=== PATIENT | male | born 1970 | race Caucasian/White ===

== ENCOUNTER → 2019-12-10 16:02 | Outpatient (BNVA) | payer MEDICAID, SELFPAY | PROVIDERS: PCP Family Medicine; Visit Provider Urology | DX: R39.89 Other symptoms and signs involving the genitourinary system (principal) | CPT/HCPCS: 51798; 81003; 99214 ==

== ENCOUNTER → 2020-01-21 14:59 | Outpatient (BNVA) | payer MEDICAID, SELFPAY | PROVIDERS: PCP Family Medicine; Referring Provider Family Medicine; Visit Provider Urology | DX: R39.12 Poor urinary stream (principal) | CPT/HCPCS: 52000; 81002; 99212 ==

== ENCOUNTER 2020-03-20 17:31 | Outpatient (REF) | payer MEDICAID, SELFPAY | END 2020-03-20 17:32 | disposition home or self-care (01) | LOC: HO.LAB 17:31 | PROVIDERS: Visit Provider Internal Medicine | DX: Z20.822 Contact with and (suspected) exposure to COVID-19 (principal) | CPT/HCPCS: 36415; C9803; U0003 ==

== ENCOUNTER 2020-08-23 16:52 | Outpatient (REF) | payer MEDICAID, SELFPAY ==
--- NOTE | ~2020-08-23 | XR_ITS ---
EXAMINATION: CHEST AND BILATERAL RIB X-RAY CLINICAL INFORMATION: Intercostal pain COMPARISON: Previous chest x-ray most recent 08/23/2020 TECHNIQUE: PA view of the chest and 6 views of the bilateral ribs FINDINGS: The cardiac and mediastinal contours are normal. The lungs are clear. There is no pleural effusion or pneumothorax. No rib fracture or bone lesion is seen. Degenerative changes of the thoracic spine. There is a small sclerotic lesion in left proximal humeral shaft. This is unchanged from 2016 chest x-ray and may represent a benign bone island. XR/XR ribs BI 3V IMPRESSION: No rib fracture or bone lesion is seen.
--- NOTE | ~2020-08-23 | XR_ITS ---
EXAMINATION: CHEST AND BILATERAL RIB X-RAY CLINICAL INFORMATION: Intercostal pain COMPARISON: Previous chest x-ray most recent 08/23/2020 TECHNIQUE: PA view of the chest and 6 views of the bilateral ribs FINDINGS: The cardiac and mediastinal contours are normal. The lungs are clear. There is no pleural effusion or pneumothorax. No rib fracture or bone lesion is seen. Degenerative changes of the thoracic spine. There is a small sclerotic lesion in left proximal humeral shaft. This is unchanged from 2016 chest x-ray and may represent a benign bone island. XR/XR chest 2V IMPRESSION: No rib fracture or bone lesion is seen.
== END 2020-08-23 16:53 | disposition home or self-care (01) ==
LOC: HO.XRAY 16:52
PROVIDERS: PCP Internal Medicine; Referring Provider Internal Medicine; Visit Provider Emergency Medicine
DX: R07.82 Intercostal pain (principal)
CPT/HCPCS: 71046; 71110

== ENCOUNTER 2021-01-11 13:06 | Outpatient (REF) | payer MEDICAID, SELFPAY ==
--- NOTE | ~2021-01-11 | MM_ITS ---
EXAMINATION: MM DIAGNOSTIC DIGITAL BREAST TOMOSYNTHESIS, BILATERAL US DIAGNOSTIC ULTRASOUND BREAST, RIGHT CLINICAL INFORMATION: Intermittent tenderness and palpable fullness right periareolar region, 4-5 months. Male age 50. No prior breast imaging. COMPARISON: None. TECHNIQUE: Digital breast tomosynthesis is performed in both the craniocaudal and mediolateral oblique views along with computer-aided detection (CAD). Synthesized 2D images are generated from the tomosynthesis. Additional spot right MLO view is obtained. Ultrasound right breast is targeted to the area of clinical concern subareolar and periareolar region. Grayscale imaging and color Doppler are performed without and with harmonics. FINDINGS: There are scattered areas of fibroglandular density (ACR BI-RADS breast composition Category b). There is mild gynecomastia parenchymal pattern subareolar right breast with trace involvement on left. There is no mass or architectural abnormality. No abnormal calcifications. The axilla and skin contours are unremarkable. There is no skin thickening or coarsening of the stromal markings. Ultrasound demonstrates no cystic or solid mass or focal architectural abnormality. No focal duct ectasia. No skin thickening or edema tracking in soft tissue planes. Results are discussed with the patient at time of visit. MM/MM tomosynthesis diagnostic BI IMPRESSION: Mild gynecomastia, greater on right. ASSESSMENT: BI-RADS 2: Benign RECOMMENDATION: Patient should be managed based on the clinical impression as needed. If clinically indicated, further evaluation may be considered with surgical consult. Decision to proceed with biopsy should be based on clinical grounds and degree of clinical concern.
== END 2021-01-11 13:07 | disposition home or self-care (01) ==
LOC: HO.MAMMO 13:06
PROVIDERS: Visit Provider Nurse Practitioner Family
DX: N62 Hypertrophy of breast (principal)
CPT/HCPCS: 76642; 77062; 77066

== ENCOUNTER 2021-11-07 16:50 | Outpatient (REF) | payer MEDICAID, SELFPAY ==
--- NOTE | ~2021-11-07 | XR_ITS ---
EXAMINATION: XR KNEE, BILATERAL CLINICAL INFORMATION: Pain. COMPARISON: None TECHNIQUE: 4 views of each knee. FINDINGS: RIGHT KNEE: There is no evidence of acute fracture or dislocation of the right knee. There is mild medial joint space compartment narrowing with minor marginal spurring. There is a small right knee effusion. No significant degenerative change of the patellofemoral joint is seen. There is a large patellar spur site of insertion of the quadriceps tendon. Vascular calcifications present. LEFT KNEE: There is no evidence of acute fracture or dislocation of the left knee. There is narrowing of the medial joint space compartment. No significant effusion is appreciated. No significant patellofemoral joint degenerative changes seen. There is a spur site of insertion of the quadriceps tendon on the patella. XR/XR knee RT 4V IMPRESSION: Right knee effusion. Bilateral mild medial joint space compartment narrowing.
--- NOTE | ~2021-11-07 | XR_ITS ---
EXAMINATION: XR SHOULDER, LEFT CLINICAL INFORMATION: Pain COMPARISON: 08/20/2017 TECHNIQUE: AP external rotation, Grashey, scapular Y, and axillary views of the left shoulder. FINDINGS: There is no evidence of acute fracture or dislocation of the left shoulder. There is mild spurring of the glenohumeral joint without joint space narrowing. No calcific tendinitis. There is degenerative spurring about the left acromioclavicular joint. There is no widening of the coracoclavicular space. Benign-appearing sclerotic lesion is seen within the proximal humeral shaft which may represent an ossifying fibroma. I do not see a central low density area to suggest nidus of an osteoid osteoma. XR/XR shoulder LT min 2V IMPRESSION: Degenerative change of the acromioclavicular joint with no significant shoulder abnormality. 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
--- NOTE | ~2021-11-07 | XR_ITS ---
EXAMINATION: XR KNEE, BILATERAL CLINICAL INFORMATION: Pain. COMPARISON: None TECHNIQUE: 4 views of each knee. FINDINGS: RIGHT KNEE: There is no evidence of acute fracture or dislocation of the right knee. There is mild medial joint space compartment narrowing with minor marginal spurring. There is a small right knee effusion. No significant degenerative change of the patellofemoral joint is seen. There is a large patellar spur site of insertion of the quadriceps tendon. Vascular calcifications present. LEFT KNEE: There is no evidence of acute fracture or dislocation of the left knee. There is narrowing of the medial joint space compartment. No significant effusion is appreciated. No significant patellofemoral joint degenerative changes seen. There is a spur site of insertion of the quadriceps tendon on the patella. XR/XR knee LT 4V IMPRESSION: Right knee effusion. Bilateral mild medial joint space compartment narrowing.
[2021-11-07 17:18] LABS: MANUAL DIFF FLAG NO
[2021-11-07 17:49] LABS: Basophils Absolute Auto 0.1 X10*3/uL (0.0-0.2); Basophils Percent Auto 1.4 % (0-2); Eosinophils Absolute Auto 0.4 X10*3/uL (0.0-0.4); Eosinophils Percent Auto 8.9 % (0-4); Hematocrit 38.5 % (42.0-52.0); Hemoglobin 13.1 g/dl (14.0-18.0); Imm Gran Abs Auto 0.01 X10*3/uL (0.00-0.03); Imm Gran Pct Auto 0.2 % (0.0-0.4); Lymphocytes Absolute Auto 1.9 X10*3/uL (1.2-4.9); Lymphocytes Percent Auto 43.7 % (20-40); Mean Corpuscular Hemoglobin 28.4 pg (27.0-33.0); Mean Corpuscular Volume 83.5 fL (80.0-98.0); Mean Platelet Volume 10.5 fL (9.4-12.4); Monocytes Absolute Auto 0.6 X10*3/uL (0.1-1.2); Monocytes Percent Auto 13.4 % (2-11); Neutrophils Absolute Auto 1.4 x10*3/uL (2.0-8.3); Neutrophils Percent Auto 32.4 % (45-73); Platelet Count 263 X10*3/uL (160-400); Red Blood Count 4.61 X10*6/uL (4.60-5.80); Red Cell Distribution Width 13.9 % (11.0-16.0); White Blood Count 4.3 X10*3/uL (4.8-10.8)
[2021-11-07 17:53] LABS: Rheumatoid Factor < 15.0 IU/mL (<15.0)
[2021-11-07 18:32] LABS: Erythrocyte Sedimentation Rate 7 MM/HR (0-15)
[2021-11-08 05:38] LABS: Estimated Average Glucose 108 mg/dL; Hemoglobin A1c % 5.4 %
[2021-11-08 05:49] LABS: Vitamin B12 240 pg/mL (200-900)
[2021-11-08 06:19] LABS: CT PCR NOT DETECTED (Not Detect.); NG PCR NOT DETECTED (Not Detect.)
[2021-11-08 18:02] LABS: Lyme Abs Screen <0.90 index
[2021-11-08 22:47] LABS: ANAchoice Screen NEGATIVE (NEGATIVE)
[2021-11-11 11:32] LABS: Anti Nuclear Antibody Screen NEGATIVE (NEGATIVE)
== END 2021-11-07 16:51 | disposition home or self-care (01) ==
LOC: HO.XRAY 16:50
PROVIDERS: Absent Provider Internal Medicine; PCP Internal Medicine; Visit Provider Internal Medicine
DX: Z11.3 Encounter for screening for infections with a predominantly sexual mode of transmission (principal); R53.81 Other malaise; M25.561 Pain in right knee; M25.562 Pain in left knee; M25.512 Pain in left shoulder
CPT/HCPCS: 73030; 73564; 82607; 83036; 85025; 85652; 86038; 86039; 86225; 86431; 86617; 86618; 87491; 87591

== ENCOUNTER 2022-08-16 15:11 | Outpatient (REF) | payer MEDICAID, SELFPAY ==
--- NOTE | ~2022-08-16 | XR_ITS ---
EXAMINATION: XR CERVICAL SPINE XR LUMBAR SPINE CLINICAL INDICATION: Left neck pain for 3 months radiating to left shoulder. Back pain. COMPARISON: Cervical spine 08/20/2017. TECHNIQUE: 6 views cervical spine and 5 views lumbar spine. FINDINGS: CERVICAL SPINE: There is maintained cervical lordosis. There is loss of C5-C6 disc height with ventral spondylosis C4-C5, C5-C6 and C6-C7 disc levels. There is mild bilateral narrowing of the neural foramina at the C4-C5, C5-C6 and C6-C7 disc levels. Mild facet joint arthropathy seen on the left at the C3-C4 disc level. No acute fracture or dislocation seen. LUMBAR SPINE: There is maintained lumbar lordosis. The vertebral heights, alignment and disc heights are normal. No visible acute fracture, dislocation or subluxation seen. There is no pars defect or listhesis. No aggressive lytic or sclerotic process seen. There is mild ventral spondylosis at the L4-L5 disc level. The paravertebral soft tissues are normal. XR/XR cervical spine 5V IMPRESSION: Mild degenerative disc changes C5-C6 with ventral spondylosis, as described above. No acute fracture or dislocation. No acute fracture or dislocation in the lumbar spine. There is mild ventral spondylosis at the L4-L5 disc level. No listhesis seen.
--- NOTE | ~2022-08-16 | XR_ITS ---
EXAMINATION: XR CERVICAL SPINE XR LUMBAR SPINE CLINICAL INDICATION: Left neck pain for 3 months radiating to left shoulder. Back pain. COMPARISON: Cervical spine 08/20/2017. TECHNIQUE: 6 views cervical spine and 5 views lumbar spine. FINDINGS: CERVICAL SPINE: There is maintained cervical lordosis. There is loss of C5-C6 disc height with ventral spondylosis C4-C5, C5-C6 and C6-C7 disc levels. There is mild bilateral narrowing of the neural foramina at the C4-C5, C5-C6 and C6-C7 disc levels. Mild facet joint arthropathy seen on the left at the C3-C4 disc level. No acute fracture or dislocation seen. LUMBAR SPINE: There is maintained lumbar lordosis. The vertebral heights, alignment and disc heights are normal. No visible acute fracture, dislocation or subluxation seen. There is no pars defect or listhesis. No aggressive lytic or sclerotic process seen. There is mild ventral spondylosis at the L4-L5 disc level. The paravertebral soft tissues are normal. XR/XR lumbar spine 4V min IMPRESSION: Mild degenerative disc changes C5-C6 with ventral spondylosis, as described above. No acute fracture or dislocation. No acute fracture or dislocation in the lumbar spine. There is mild ventral spondylosis at the L4-L5 disc level. No listhesis seen.
== END 2022-08-16 15:12 | disposition home or self-care (01) ==
LOC: HO.HHCX 15:11
PROVIDERS: Visit Provider Internal Medicine
DX: M54.50 Low back pain, unspecified (principal); M54.2 Cervicalgia
CPT/HCPCS: 72050; 72110

== ENCOUNTER 2022-12-10 09:54 | Outpatient (AMB) | payer MEDICAID, SELFPAY ==
--- NOTE | 2022-12-10 10:03 | A.OFFVIS_ITS ---
Intake Vital Signs 3 12/10/22 10:08 Height 5 ft 9 in Weight 184 lb 2 oz BMI 27.2 BP 123/79 Blood Pressure Location Lt brachial Position Sitting Pulse 73 Intake Visit Reasons: abdominal wall hernia Intake Note: Patient is seen in office for evaluation and treatment of an abdominal wall hernia. 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 Patient subsequently developed a lump in the right lower quadrant at a port site. The lump has gradually increased in size and is now causing occasional discomfort when it is distended. He notes the lump to increase in size with lifting and straining but is able to reduce the lump with light pressure. He denies nausea, vomiting, fever or chills. He denies problems in the other incisions. [facility] Surgical History History of appendectomy H/O hemicolectomy Social History Alcohol intake: never Patient Tobacco Use Status: Current everyday Tobacco user Review of Systems Const All systems reviewed & are unremarkable except as noted in HPI and below Denies chills, Denies fever(s), Denies headache(s), Denies poor appetite and Denies weakness ENT Denies headache(s) Card Denies chest pain, Denies irregular heart rhythm, Denies palpitations and Denies dyspnea Resp Denies cough, Denies excessive phlegm production and Denies dyspnea GI Reports as per HPI, Denies abdominal pain, Denies bloating, Denies change in bowel habits, Reports constipation, Denies heartburn, Denies diarrhea, Denies nausea and Denies vomiting Denies difficulty urinating and Denies urinary frequency Musc Denies back pain, Denies muscle weakness and Denies numbness Skin/Breast Denies changing lesions and Denies unusual bruising Neuro Denies headache(s), Denies numbness, Denies paresthesias and Denies weakness Psych Denies anxiety and Denies depression Endo Denies palpitations Dru/Lymph Denies lymphadenopathy Physical Exam Vital Signs: Last Vital Signs Pulse 73 12/10/22 10:08 BP 123/79 12/10/22 10:08 BMI result Body Mass Index 27.2 Const General: cooperative and no acute distress Nutritional Appearance: well nourished Orientation/consciousness: patient oriented x3 Limitations: no limitations HEENT Head: Yes normocephalic and Yes atraumatic Ears: hearing grossly normal bilaterally Resp Effort & Inspection: normal respiratory effort, no audible wheezes, no cough and no respiratory distress Cardio Jugular venous distension: no JVD GI Inspection: Yes normal to inspection Palpation (GI): Soft to palpation, nontender, no guarding, not rigid and Hernia present other (Incisional hernia right lower quadrant as noted below) Abdomen image: 2 1. 2 cm hernia in the right lower quadrant, increases with Valsalva maneuvers but reduces in the supine position with light pressure. Minimal tenderness to palpation. Skin Other: Warm, dry, no rash Neuro General: patient oriented x3 Extrem General: Yes no clubbing, cyanosis or edema Assessment & Plan Assessment & Plan (1) Diverticulitis large intestine: Code(s): K57.32 - Diverticulitis of large intestine without perforation or abscess without bleeding (2) Incisional hernia without obstruction or gangrene: Code(s): K43.2 - Incisional hernia without obstruction or gangrene Plan 52-year-old male patient presenting with a prior history of sigmoid diverticulitis with a colovesical fistula, now status post laparoscopic sigmoid colectomy. He presents with an incisional hernia in the right lower quadrant at 1 of the port sites. On examination he is found to have a 2 cm reducible incisional hernia in the right lower quadrant. I recommended further evaluation with CT abdomen and pelvis to assure no other hernias or infection involving the other incisions followed by repair of the incisional hernia with mesh. After discussion of the procedure, risks and benefits, he consents to the repair of the incisional hernia with mesh. Orders: Orders 2 CT abdomen pelvis wo IV con Today K57.32 - Diverticulitis of large intestine without perforation or abscess without bleeding Coding Level of Care Code New Pt Level 4 (33905) Diagnoses Diverticulitis large intestine K57.32 Incisional hernia without obstruction or gangrene K43.2
[2022-12-10 10:08] VITALS: BP 123/79; PULSE 73; BMI 27.2
== END 2022-12-10 10:39 | disposition home or self-care (01) ==
PROVIDERS: PCP Internal Medicine; Referring Provider Internal Medicine; Visit Provider Surgery
DX: K57.32 Diverticulitis of large intestine without perforation or abscess without bleeding (principal); K43.2 Incisional hernia without obstruction or gangrene
CPT/HCPCS: 99204

== ENCOUNTER → 2022-12-10 09:54 | Outpatient (BNVA) | payer MEDICAID, SELFPAY | PROVIDERS: PCP Internal Medicine; Referring Provider Internal Medicine; Visit Provider Surgery ==

== ENCOUNTER 2023-01-06 14:28 | Outpatient (REF) | payer MEDICAID, SELFPAY ==
--- NOTE | ~2023-01-06 | CT_ITS ---
EXAMINATION: CT ABDOMEN AND PELVIS WITHOUT CONTRAST CLINICAL INFORMATION: Diverticulitis of large colon without perforation or abscess. COMPARISON: CT abdomen and pelvis 08/23/2019. TECHNIQUE: Multidetector volumetric imaging was performed from the superior aspect of the liver through the pubic symphysis. Sagittal and coronal reformatted images were obtained on the technologist's workstation. This CT examination was performed using dose optimization techniques as appropriate, variously including the following: *Automated exposure control *Adjustment of mA and/or kV according to patient size (this includes techniques or standardized protocols for targeted exams where dose is matched to indication/reason for exam; i.e. extremities or head) *Use of iterative reconstruction technique DLP: 589 mGy-cm. FINDINGS: LUNG BASES: The visualized lung bases are unremarkable. LIVER, GALLBLADDER, AND BILIARY TREE: The liver is normal in size, shape, and attenuation. No focal hepatic lesion or biliary ductal dilatation is present. The gallbladder is unremarkable with no evidence of radiopaque gallstones, gallbladder wall thickening, or obvious pericholecystic inflammatory changes. PANCREAS: Unremarkable. SPLEEN: Unremarkable. ADRENAL GLANDS: Unremarkable. KIDNEYS AND URETERS: The kidneys are normal in size, shape, and attenuation. No hydronephrosis, hydroureter, or calculi seen. No perinephric stranding. BLADDER: Unremarkable. GASTROINTESTINAL TRACT: Status post sigmoid resection with no evidence of obstruction or mass at the suture line. The small and large bowel are otherwise unremarkable. The appendix is unremarkable. ABDOMINAL WALL: No significant hernia is appreciated. Tiny periumbilical hernia seen containing only fat. LYMPH NODES: No retroperitoneal lymphadenopathy. VASCULAR: Calcific plaque present in the aorta and iliac vessels without aneurysm. PELVIC VISCERA: The prostate and seminal vesicles are unremarkable. OSSEOUS STRUCTURES: Unremarkable. CT/CT abdomen pelvis wo IV con IMPRESSION: 1. Status post sigmoid resection with no evidence of obstruction or mass at the suture line. 2. Other incidental findings as described above. Fleischner guidelines were followed.
[2023-01-06] MEDS: Barium Sulfate Oral (Mocha) 450 ML ORAL.SUSP PO (16:41)
== END 2023-01-06 14:29 | disposition home or self-care (01) ==
LOC: HO.CT 14:28
PROVIDERS: PCP Internal Medicine; Visit Provider Surgery
DX: K57.32 Diverticulitis of large intestine without perforation or abscess without bleeding (principal)
CPT/HCPCS: 74176

== ENCOUNTER 2023-01-16 10:15 | Outpatient (AMB) | payer MEDICAID, SELFPAY ==
--- NOTE | 2023-01-16 10:24 | A.OFFVIS_ITS ---
Intake Vital Signs 3 01/16/23 10:27 Height 5 ft 9 in Weight 186 lb 6 oz BMI 27.5 BP 143/84 H Blood Pressure Location Lt brachial Position Sitting Pulse 86 Intake Visit Reasons: Ct-Scan follow-up Intake Note: Patient is seen in office for CT scan results, following incisional hernia. 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 Accompanied by: Family/Other Allergies No Known Drug Allergies Allergy (Unknown, Unverified 01/16/23 10:29) U Medication List - Last Reconciled 01/16/23 by Davi Otero MD amlodipine 5 mg PO QAM buprenorphine-naloxone 8-2 mg (Suboxone) 10 mg sublingual Q12H docusate sodium 100 - 200 mg PO BID PRN gabapentin 100 mg PO BID sennosides (senna) 8.6 - 17.2 mg PO BID PRN trimethoprim 100 mg PO DAILY 90 days HPI HPI Comments 2 History of Present Illness0 Details 52-year-old male patient with a history of sigmoid diverticulitis with a colovesical fistula, status post laparoscopic sigmoid colectomy approximately 2 years ago at [facility]. Patient subsequently developed a lump in the right lower quadrant at a port site. The lump has gradually increased in size and is now causing occasional discomfort when it is distended. He notes the lump to increase in size with lifting and straining but is able to reduce the lump with light pressure. He denies nausea, vomiting, fever or chills. He denies problems in the other incisions. On examination a lump was identified in the right lower quadrant which increased in size with Valsalva maneuvers. A CT abdomen and pelvis was recommended to evaluate for additional hernias. He returns today to review this study. CT abdomen and pelvis does reveal a right lower quadrant incisional hernia not containing intestine. In addition at a midline hernias in the upper abdomen just above the umbilicus is also identified again not containing bowel. [facility] Surgical History History of appendectomy H/O hemicolectomy Social History Alcohol intake: never Patient Tobacco Use Status: Current everyday Tobacco user Review of Systems Const All systems reviewed & are unremarkable except as noted in HPI and below Denies chills, Denies fever(s), Denies headache(s), Denies poor appetite and Denies weakness ENT Denies headache(s) Card Denies chest pain, Denies irregular heart rhythm, Denies palpitations and Denies dyspnea Resp Denies cough, Denies excessive phlegm production and Denies dyspnea GI Reports as per HPI, Denies abdominal pain, Denies bloating, Denies change in bowel habits, Reports constipation, Denies heartburn, Denies diarrhea, Denies nausea and Denies vomiting Denies difficulty urinating and Denies urinary frequency Musc Denies back pain, Denies muscle weakness and Denies numbness Skin/Breast Denies changing lesions and Denies unusual bruising Neuro Denies headache(s), Denies numbness, Denies paresthesias and Denies weakness Psych Denies anxiety and Denies depression Endo Denies palpitations Dru/Lymph Denies lymphadenopathy Physical Exam Vital Signs: Last Vital Signs Pulse 86 01/16/23 10:27 BP 143/84 H 01/16/23 10:27 BMI result Body Mass Index 27.5 Const General: cooperative and no acute distress Nutritional Appearance: well nourished Orientation/consciousness: patient oriented x3 Limitations: no limitations HEENT Head: Yes normocephalic and Yes atraumatic Ears: hearing grossly normal bilaterally Resp Effort & Inspection: normal respiratory effort, no audible wheezes, no cough and no respiratory distress Cardio Jugular venous distension: no JVD GI Inspection: Yes normal to inspection Palpation (GI): Soft to palpation, nontender, no guarding, not rigid and Hernia present other (Incisional hernia right lower quadrant as noted below) Abdomen image: 2 1. Right lower quadrant incisional hernia: 3 cm diameter, reducible 2. Upper midline incisional hernia 3 cm diameter, reducible Skin Other: Warm, dry, no rash Neuro General: patient oriented x3 Extrem General: Yes no clubbing, cyanosis or edema Assessment & Plan Assessment & Plan (1) Incisional hernia without obstruction or gangrene: Code(s): K43.2 - Incisional hernia without obstruction or gangrene Plan 52-year-old male patient presenting with 2 incisional hernias following colon surgery for diverticulitis. One hernias located in the right lower quadrant in the 2nd is located in the upper midline. I recommended repair of both hernias with mesh as a short-stay surgery. After discussion of the procedure, risks, and alternatives, he consents to repair of the right lower quadrant and upper midline incisional hernia with mesh. This will be scheduled as a short-stay surgery. Coding Level of Care Code Est Pt Level 4 (34620) Diagnoses Incisional hernia without obstruction or gangrene K43.2
[2023-01-16 10:27] VITALS: BP 143/84; PULSE 86; BMI 27.5
== END 2023-01-16 10:43 | disposition home or self-care (01) ==
PROVIDERS: PCP Internal Medicine; Visit Provider Surgery
DX: K43.2 Incisional hernia without obstruction or gangrene (principal)
CPT/HCPCS: 99214

== ENCOUNTER → 2023-01-16 10:15 | Outpatient (BNVA) | payer MEDICAID, SELFPAY | PROVIDERS: PCP Internal Medicine; Visit Provider Surgery | DX: K43.2 Incisional hernia without obstruction or gangrene (principal) | CPT/HCPCS: 99212 ==

== ENCOUNTER 2023-02-07 09:46 | Outpatient (REF) | payer MEDICAID, SELFPAY ==
[2023-02-07 12:19] LABS: HIV AB/AG Nonreactive (Nonreactive); HIV Num 1 0.05 S/CO (0.00-0.99); ~HepC Num1 16.89 S/CO (0.00-0.79); ~Hepatitis C Antibody Reactive (Nonreactive)
[2023-02-08 14:49] LABS: HCV Log PCR <1.18 NOT DETECTED Log IU/mL (NOT DETECTED); HepC Viral Load <15 NOT DETECTED IU/mL (NOT DETECTED)
== END 2023-02-07 09:47 | disposition home or self-care (01) ==
LOC: HO.HHCL 09:46
PROVIDERS: Visit Provider Emergency Medicine
DX: F11.20 Opioid dependence, uncomplicated (principal)
CPT/HCPCS: 36415; 86803; 87389; 87522

== ENCOUNTER 2023-04-07 05:54 | Day surgery (SDC) | payer MEDICAID, SELFPAY ==
[2023-01-28 09:07] VITALS: BMI 27.5
--- NOTE | 2023-01-28 14:07 | HO.ANESPROP2 ---
HPI - Anesthesia Eval Consult details Narrative: 52yo M for Hernia Repair Incisional upper midline & right lower quad with mesh Suboxone daily PMFSH Active Problems Active Problems: All Active Problems (Updated 01/28/23 @ 09:03 by Desirae Flores RN) Incisional hernia without obstruction or gangrene (Acute) Diverticulitis large intestine (Acute) Weak urinary stream (Acute) Pneumaturia (Acute) Past Medical History Medical History (Updated 01/28/23 @ 09:03 by Desirae Flores RN) Elevated cholesterol Plaque psoriasis Opioid dependence Hepatitis C Anxiety Arthritis HTN (hypertension) Diverticulitis Surgical History Surgical History (Updated 01/28/23 @ 09:01 by Desirae Flores RN) History of bronchoscopy H/O colonoscopy Hx of cystoscopy History of appendectomy H/O hemicolectomy Social History (Updated 01/28/23 @ 08:59 by Desirae Flores RN) Alcohol intake: never Patient Tobacco Use Status: Current everyday Tobacco user Substance Use Type: Former Substance User Substance Use Type Other:: taking suboxone Meds Allergies Allergy/AdvReac Type Severity Reaction Status Date / Time No Known Drug Allergies Allergy Unknown U Unverified 01/16/23 10:29 Home Medications Medication Instructions Recorded Confirmed Last Taken Type amlodipine 5 mg tablet 5 mg PO QAM 12/10/22 01/28/23 Unknown History buprenorphine 8 mg-naloxone 2 mg 10 mg sublingual Q12H 12/10/22 01/28/23 Unknown History sublingual film (Suboxone) docusate sodium 100 mg capsule 100 - 200 mg PO BID PRN 12/10/22 01/28/23 Unknown History constipation gabapentin 100 mg capsule 100 mg PO BID 12/10/22 01/28/23 Unknown History sennosides 8.6 mg tablet (senna) 8.6 - 17.2 mg PO BID PRN 12/10/22 01/28/23 Unknown History constipation atorvastatin 40 mg tablet 40 mg PO QAM 01/28/23 01/28/23 Unknown History Exam Height,Weight and Vital Signs: Height 5 ft 9 in Weight 84.368 kg Assessment and Plan Assessment Anesthesia Assessment: Chart Reviewed
[2023-04-03 16:03] VITALS: BMI 26.6
--- NOTE | 2023-04-04 09:49 | P.CONAN_ITS ---
Documented by User: Zulay Fox NP 04/04/23 09:50 HPI - Anesthesia Eval Consult details Narrative: 52yo M for Hernia Repair Incisional upper midline & right lower quad with mesh Suboxone daily PMFSH Active Problems Active Problems: All Active Problems (Updated 01/28/23 @ 09:03 by Desirae Flores RN) Incisional hernia without obstruction or gangrene (Acute) Diverticulitis large intestine (Acute) Weak urinary stream (Acute) Pneumaturia (Acute) Past Medical History Medical History Elevated cholesterol Plaque psoriasis Opioid dependence Hepatitis C Anxiety Arthritis HTN (hypertension) Diverticulitis Surgical History Surgical History History of bronchoscopy H/O colonoscopy Hx of cystoscopy History of appendectomy H/O hemicolectomy Social History Social History Are you a primary direct care provider to a significant other at home: No Do you presently have visiting nurse or other home services: No Alcohol intake: never Patient Tobacco Use Status: Current everyday Tobacco user Tobacco use type: Cigarette Cigarettes Per Day: 20 Years Smoked: 35 Substance Use Type: Former Substance User Meds Allergies Allergy/AdvReac Type Severity Reaction Status Date / Time No Known Drug Allergies Allergy Unknown . Verified 04/07/23 06:39 Home Medications Medication Instructions Recorded Confirmed Last Taken Type amlodipine 5 mg tablet 5 mg PO BEDTIME 12/10/22 04/03/23 Unknown History buprenorphine 8 mg-naloxone 2 mg 10 mg sublingual Q12H 12/10/22 01/28/23 04/07/23 History sublingual film (Suboxone) docusate sodium 100 mg capsule 100 - 200 mg PO BID PRN 12/10/22 01/28/23 Unknown History constipation gabapentin 100 mg capsule 100 mg PO BID 12/10/22 01/28/23 04/07/23 History sennosides 8.6 mg tablet (senna) 8.6 - 17.2 mg PO BID PRN 12/10/22 01/28/23 Unknown History constipation atorvastatin 40 mg tablet 40 mg PO QAM 01/28/23 01/28/23 Unknown History tadalafil 5 mg tablet 5 mg PO DAILY PRN Sexual Activity 04/03/23 04/03/23 Unknown History Exam Height,Weight and Vital Signs: Height 5 ft 9 in Weight 81.647 kg Assessment and Plan Assessment Anesthesia Assessment: Chart Reviewed Documented by User: Dodie Cordova MD 04/07/23 07:58 [facility] Past Medical History Medical History Elevated cholesterol Plaque psoriasis Opioid dependence Hepatitis C Anxiety Arthritis HTN (hypertension) Diverticulitis Surgical History Surgical History History of bronchoscopy H/O colonoscopy Hx of cystoscopy History of appendectomy H/O hemicolectomy History of Problems with Anesthesia: No Social History Social History Are you a primary direct care provider to a significant other at home: No Do you presently have visiting nurse or other home services: No Alcohol intake: never Patient Tobacco Use Status: Current everyday Tobacco user Tobacco use type: Cigarette Cigarettes Per Day: 20 Years Smoked: 35 Substance Use Type: Former Substance User Meds Allergies Allergy/AdvReac Type Severity Reaction Status Date / Time No Known Drug Allergies Allergy Unknown . Verified 04/07/23 06:39 Home Medications Medication Instructions Recorded Confirmed Last Taken Type amlodipine 5 mg tablet 5 mg PO BEDTIME 12/10/22 04/03/23 Unknown History buprenorphine 8 mg-naloxone 2 mg 10 mg sublingual Q12H 12/10/22 01/28/23 04/07/23 History sublingual film (Suboxone) docusate sodium 100 mg capsule 100 - 200 mg PO BID PRN 12/10/22 01/28/23 Unknown History constipation gabapentin 100 mg capsule 100 mg PO BID 12/10/22 01/28/23 04/07/23 History sennosides 8.6 mg tablet (senna) 8.6 - 17.2 mg PO BID PRN 12/10/22 01/28/23 Unknown History constipation atorvastatin 40 mg tablet 40 mg PO QAM 01/28/23 01/28/23 Unknown History tadalafil 5 mg tablet 5 mg PO DAILY PRN Sexual Activity 04/03/23 04/03/23 Unk nown History Exam Airway Mallampati Class: II TM Dist: >3cm Neck ROM: Full Loose/Missing/Broken Teeth: Yes, Upper and Lower Heart: RRR Lungs: CTA Assessment and Plan Assessment Anesthesia Assessment: Anesthesia Plan Discussed Final Anesthetic Review History of Problems with Anesthesia: No NPO: Yes ASA Class: II Final Preanesthetic Review: Meds/Allgs Chart Reviewed, Consent Obtained/Reviewed and Anes Risks/Benef Reviewed Patient Risk: Low Procedure Risk: Low Anesthetic Plan Anesthetic Plan: GA Disposition: Standard PACU
[2023-04-07 06:21] VITALS: BMI 27.8
[2023-04-07 06:27] VITALS: BP 129/88; PULSE 87; RESP 16; TEMP 37.1; O2SAT 94
[2023-04-07] MEDS: Lactated Ringers 1,000 ML 100 ML IVCONT (06:39)
--- NOTE | 2023-04-07 07:28 | P.HPSUR_ITS ---
Pre-Procedural Eval Section A - 24 Hr Update-Section A only Date of Service: 04/07/23 The patient is an INPATIENT: No Changes since office visit: Yes Patient answered all questions; No Cold of Flu in the past 2 weeks, No New Medical Problems and No Changes in Medication The patient has been examined within 24 hours of the surgical procedure. The History & Physical has been completed within 30 days and I have reviewed it.: No Section B - Complete if H&P > 30 days Chief Complaint: Incisional hernia without obstruction or gangrene Details of Present Illness: No changes since his last evaluation. Hernia is currently asymptomatic Relevant Family History (Specify if Yes): No Relevant Social History: Other (specify) (Substance abuse history) Present Medications: see Short Stay Collaborative assessment Medical History: Significant History (Colovesical fistula) History of Previous Operations: Relevant previous surgery/procedure and date(s) (Previous colonic surgery at [facility]) Allergies: Allergies Allergy/AdvReac Type Severity Reaction Status Date / Time No Known Drug Allergies Allergy Unknown . Verified 04/07/23 06:39 Review of Systems Sugical H&P ROS: Negative: Constitution, Cardiovascular, Respiratory, Neurological, Psychiatric, Hem-Onc, Allergic/Immunologic, Gastrointestinal, Genitourinary, Musculoskeletal, Integumentary, Endocrine and Eyes/Ears/Nose/ Throat Exam Surgical H&P Exam: Normal: HEENT, Normal: Heart, Normal: Lungs, Normal: Extremities, Normal: Skin and Normal: Neurological and Significant Findings: Abdomen (Incisional hernia at umbilicus and right lower quadrant) Plan Diagnosis/Plan: Unchanged I have reviewed the history and physical and performed a pertinent physical examination on my patient. No changes have occurred unless specified. Time Spent With Patient Time: Total time managing care of this patient today ____ minutes.
--- NOTE | 2023-04-07 07:33 | P.OP_ITS ---
Operative Note Operative Note Date of Service: 04/07/23 Narrative: Preoperative diagnosis: Incisional hernia upper abdomen and right lower quadrant Postoperative diagnosis: Same Procedure: Repair of incisional hernia upper abdomen midline and right lower quadrant with mesh Surgeon: Davi Otero MD Roller Skate Repairer: Lea Mclain PA-C Anesthesia: General LMA Indications for procedure: 52-year-old male patient with a previous history of a laparoscopic colectomy found to have incisional hernias in the right lower quadrant and supraumbilical location noted on physical examination. Hernias are at the site of previous trocar incisions. Each hernia measures 2 cm in diam eter. Operative findings: Incisional hernias noted above Specimen: Hernia sac from right lower quadrant hernia Estimated blood loss: 5 mL Complications: None Procedure details: Patient was brought to the OR placed in a supine position. After administering general anesthesia the patient's abdomen was prepped with ChloraPrep and draped in a sterile fashion. A surgical time-out was called the consent confirmed. Patient received preoperative antibiotics and Venodyne boots were in place. Local anesthesia consisting of 0.5% Sensorcaine was then infiltrated over the umbilicus in a transverse fashion and in the right lower quadrant over the palpable hernia. Starting at the umbilicus a curvilinear incision was made around the umbilicus. This was then carried out through subcutaneous tissue up to the hernia sac. The hernia sac was then dissected circumferentially down to the fascial defect. The fascial defect was then widened and the hernia sac reduced. A preperitoneal space was then created using electrocautery and blunt dissection. A 4.3 cm round Ventralex mesh was then obtained. This was deployed within the preperitoneal space and secured to the fashion 4 quadrants using a 0 Tycron suture. The fascia was then closed over the mesh using [id number] 0 Tycron sutures. Approximately 3 mL of Zenrelef was infiltrated around the hernia repair. The wounds were then irrigated with saline solution and suctioned dry. Attention was then directed to the right lower quadrant hernia. Once again local anesthesia was infiltrated around the hernia. A transverse incision was then made over the palpable hernia. This was then carried out through subcutaneous tissue up to the hernia sac. The hernia sac was then dissected circumferentially using electrocautery down to the fascial defect. This was continued down below the external oblique and up to the internal oblique aponeurosis. The sac was then entered and the incarcerated omentum freed from the surrounding peritoneal sac. This was then returned to the abdominal cavity. The extra peritoneal sac was excised and sent to pathology for further examination. Peritoneum was then closed using a running 0 Polysorb suture. A preperitoneal space was then dissected below the internal oblique aponeurosis and muscle. A 6.4 cm round Ventralex mesh was then obtained and deployed within the preperitoneal space. This was then secured to the internal oblique aponeurosis and muscle using 0 Tycron suture. The internal oblique aponeurosis and muscle were then reapproximated using a running 0 Tycron suture. External oblique aponeurosis was then closed using [id number] 0 Tycron sutures. Prior to completely closing the external oblique aponeurosis approximately 6 mL of Zenrelef was infiltrated. Wounds were then irrigated with saline solution and suctioned dry. Kaleigh's fascia was then closed in both incisions using interrupted 3-0 Polysorb sutures. Dermis was reapproximated using interrupted 3-0 Polysorb sutures. Skin was closed in both incisions using a running subcuticular 4-0 Polysorb suture. Steri-Strips, 2 x 2 gauze and Tegaderm were then applied. The patient tolerated the procedure well. Sponge, instrument, and needle counts reported as correct. The patient was transferred to PACU in stable condition.
[2023-04-07 09:08] VITALS: BP 138/95; PULSE 88; RESP 18; TEMP 36.6; O2SAT 98
[2023-04-07 09:13] VITALS: BP 145/96; PULSE 89; RESP 18; O2SAT 98
[2023-04-07] MEDS: oxyCODONE HCl Immed Release 5 MG TABLET PO (09:14)
[2023-04-07 09:18] VITALS: BP 142/94; PULSE 79; RESP 18; O2SAT 94
[2023-04-07 09:23] VITALS: BP 137/96; PULSE 85; RESP 18; O2SAT 98
[2023-04-07 09:38] VITALS: BP 134/91; PULSE 88; RESP 18; TEMP 36.4; O2SAT 94
--- NOTE | 2023-04-07 10:33 | PC.NURSE ---
PATIENT AWARE THAT HE CANNOT TAKE SUBOXONE WHILE TAKING OXYCODONE, AND VISE VERSA.
== END 2023-04-07 10:32 | disposition home or self-care (01) ==
PROVIDERS: PCP Internal Medicine; Visit Provider Surgery
PROC: (CPT 49591; principal; 2023-04-07 07:30)
DX: K43.2 Incisional hernia without obstruction or gangrene (principal); K43.0 Incisional hernia with obstruction, without gangrene; Z87.19 Personal history of other diseases of the digestive system; Z90.49 Acquired absence of other specified parts of digestive tract; Z79.899 Other long term (current) drug therapy
CPT/HCPCS: 49591 ×2; 88302; C1781; C9088; J0131; J0690; J1100; J1885; J2250; J2371; J2405; J2704; J2795

== ENCOUNTER → 2023-04-07 05:54 | Outpatient (BNV) | payer MEDICAID, SELFPAY | PROVIDERS: PCP Internal Medicine; Visit Provider Surgery | DX: K43.2 Incisional hernia without obstruction or gangrene (principal) | CPT/HCPCS: 49594 ==

== ENCOUNTER 2023-04-17 14:55 | Outpatient (AMB) | payer MEDICAID, SELFPAY ==
--- NOTE | 2023-04-17 15:01 | A.OFFVIS_ITS ---
Intake Vital Signs 04/17/23 15:05 Height 5 ft 9 in Weight 189 lb 4 oz BMI 27.9 BP 120/77 Blood Pressure Location Lt brachial Position Sitting Pulse 84 Intake Visit Reasons: S/P incisional hernia w/mesh Intake Note: Patient is seen in office for post op assessment post incisional hernia repair. 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 Medication List - Last Reconciled 04/17/23 by Davi Otero MD amlodipine 5 mg PO BEDTIME atorvastatin 40 mg PO QAM buprenorphine-naloxone 8-2 mg (Suboxone) 10 mg sublingual Q12H docusate sodium 100 - 200 mg PO BID PRN gabapentin 100 mg PO BID sennosides (senna) 8.6 - 17.2 mg PO BID PRN tadalafil 5 mg PO DAILY PRN HPI HPI Comments History of Present Illness Details Patient returns 1 week following repair of an incisional hernia in the upper midline and right lower quadrant performed on 04/07/2023. He reports some soreness mainly in the right lower quadrant because is pants line crosses the incision. He denies nausea, vomiting, fever or chills. He denies any bleeding or discharge from the incision. [facility] Medical History Elevated cholesterol Plaque psoriasis Opioid dependence Hepatitis C Anxiety Arthritis HTN (hypertension) Diverticulitis Surgical History History of incisional hernia repair (04/07/23) History of bronchoscopy H/O colonoscopy Hx of cystoscopy History of appendectomy H/O hemicolectomy Social History Are you a primary critical care unit nurse to a significant other at home: No Do you presently have visiting nurse or other home services: No Alcohol intake: never Patient Tobacco Use Status: Current everyday Tobacco user Tobacco use type: Cigarette Cigarettes Per Day: 20 Years Smoked: 35 Substance Use Type: Former Substance User Physical Exam Vital Signs: Last Vital Signs Pulse 84 04/17/23 15:05 BP 120/77 04/17/23 15:05 BMI result Body Mass Index 27.9 Const General: no acute distress Nutritional Appearance: well nourished Orientation/consciousness: patient oriented x3 Limitations: no limitations Resp Effort & Inspection: normal respiratory effort GI Other: Incisions in the midline and right lower quadrant are clean, dry, and intact without hematoma or seroma. No evidence of wound infection. No changes noted with Valsalva maneuvers. Skin Other: Warm, dry, no rash Neuro General: patient oriented x3 Assessment & Plan Assessment & Plan (1) Incisional hernia without obstruction or gangrene: Code(s): K43.2 - Incisional hernia without obstruction or gangrene Plan 52-year-old male status post repair of an incisional hernia in the midline and right lower quadrant 1 week ago. He tolerated the procedure well the wounds are healing nicely. Should continue to avoid lifting greater than 10 lb for the next 4 weeks and return at that time for wound check. He expressed understanding and agrees with the plan. Coding Level of Care Code Global (81680) Diagnoses Incisional hernia without obstruction or gangrene K43.2
[2023-04-17 15:05] VITALS: BP 120/77; PULSE 84; BMI 27.9
== END 2023-04-17 15:13 | disposition home or self-care (01) ==
PROVIDERS: PCP Internal Medicine; Visit Provider Surgery
DX: K43.2 Incisional hernia without obstruction or gangrene (principal)
CPT/HCPCS: 99212

== ENCOUNTER → 2023-04-17 14:55 | Outpatient (BNVA) | payer MEDICAID, SELFPAY | PROVIDERS: PCP Internal Medicine; Visit Provider Surgery | DX: K43.2 Incisional hernia without obstruction or gangrene (principal) | CPT/HCPCS: 99212 ==

== ENCOUNTER 2023-05-22 14:53 | Outpatient (AMB) | payer MEDICAID, SELFPAY ==
--- NOTE | 2023-05-22 15:00 | MHC.OFFVIS ---
Intake Vital Signs 05/22/23 15:02 Height 5 ft 9 in Weight 188 lb 11.451 oz BMI 27.9 BP 120/82 Intake Visit Reasons: one month post incisional hernia Intake Note: Patient is seen in office for one month follow up visit, post incisional hernia repair. Pt c/o: feels hard in the right side of the abdomen, denies pain or other concerns Energy Conservation Technician Required: No Accompanied by: Family/Other Allergies No Known Drug Allergies Allergy (Unknown, Verified 05/22/23 15:04) . HPI HPI Comments History of Present Illness Details Patient returns for one-month follow-up examination after repair of incisional hernias in the right lower quadrant and periumbilical region. He notes some swelling in the right lower quadrant which seems to be decreasing in size. He denies any changes with lifting or straining. He denies any significant pain associated with the either hernia. [facility] Medical History Elevated cholesterol Plaque psoriasis Opioid dependence Hepatitis C Anxiety Arthritis HTN (hypertension) Diverticulitis Surgical History History of incisional hernia repair (04/07/23) History of bronchoscopy H/O colonoscopy Hx of cystoscopy History of appendectomy H/O hemicolectomy Social History Are you a primary hearing care practitioner to a significant other at home: No Do you presently have visiting nurse or other home services: No Alcohol intake: never Patient Tobacco Use Status: Current everyday Tobacco user Tobacco use type: Cigarette Cigarettes Per Day: 20 Years Smoked: 35 Substance Use Type: Former Substance User Physical Exam Vital Signs: Last Vital Signs BP 120/82 05/22/23 15:02 BMI result Body Mass Index 27.9 Const General: no acute distress Resp Effort & Inspection: normal respiratory effort GI Other: Swelling noted in the right lower quadrant at the site of the previous hernia repair. No changes noted with Valsalva maneuvers. Finding may be a seroma as the site seems to be getting smaller. Umbilical hernias clean, dry, and intact without redness or discharge. Assessment & Plan Assessment & Plan (1) Incisional hernia without obstruction or gangrene: Code(s): K43.2 - Incisional hernia without obstruction or gangrene Plan Patient has some continued swelling in the right lower quadrant which does not change with Valsalva maneuvers. Findings are suggestive of a seroma. I recommended observation with follow-up examination in 1 month. If there is continued swelling an ultrasound will be obtained to confirm seroma. The patient expressed understanding and agrees with the plan. Coding Level of Care Code Global (54102) Diagnoses Incisional hernia without obstruction or gangrene K43.2
[2023-05-22 15:02] VITALS: BP 120/82; BMI 27.9
== END 2023-05-22 15:08 | disposition home or self-care (01) ==
PROVIDERS: PCP Internal Medicine; Visit Provider Surgery
DX: K43.2 Incisional hernia without obstruction or gangrene (principal)
CPT/HCPCS: 99213

== ENCOUNTER → 2023-05-22 14:53 | Outpatient (BNVA) | payer MEDICAID, SELFPAY | PROVIDERS: PCP Internal Medicine; Visit Provider Surgery | DX: Z48.815 Encounter for surgical aftercare following surgery on the digestive system (principal) | CPT/HCPCS: 99212 ==

== ENCOUNTER 2023-07-22 14:37 | Outpatient (AMB) | payer MEDICAID, SELFPAY ==
--- NOTE | 2023-07-22 14:58 | A.OFFVIS_ITS ---
Vital Signs 07/22/23 14:59 Height 5 ft 9 in Weight 184 lb BMI 27.2 BP 118/72 Blood Pressure Location Lt brachial Position Sitting Pulse 72 Intake Visit Reasons: 1 mth follow up post incisional hernia Intake Note: Patient is seen in office for one month follow up post incisional hernia repair. 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 HPI Comments Details: Patient returns for follow-up examination after repair of a right lower quadrant hernia and umbilical hernia. He had some pulling sensations in the right lower quadrant recently and was concerned about recurrence of the hernia. He denies any new palpable lumps, and the previous swelling has improved. General he feels well. [facility] Medical History Elevated cholesterol Plaque psoriasis Opioid dependence Hepatitis C Anxiety Arthritis HTN (hypertension) Diverticulitis Surgical History History of incisional hernia repair (04/07/23) History of bronchoscopy H/O colonoscopy Hx of cystoscopy History of appendectomy H/O hemicolectomy Social History Are you a primary primary care provider to a significant other at home: No Do you presently have visiting nurse or other home services: No Alcohol intake: never Patient Tobacco Use Status: Current everyday Tobacco user Tobacco use type: Cigarette Cigarettes Per Day: 20 Years Smoked: 35 Substance Use Type: Former Substance User Review of Systems Const All systems reviewed & are unremarkable except as noted in HPI and below Physical Exam Vital Signs: Last Vital Signs Pulse 72 07/22/23 14:59 BP 118/72 07/22/23 14:59 BMI result Body Mass Index 27.2 Const General: no acute distress Resp Effort & Inspection: normal respiratory effort GI Other: Right lower quadrant incision is clean, dry, and intact without seroma. No changes are noted with Valsalva maneuvers. The umbilical hernias also well healed with no evidence of recurrent hernia. Skin Other: Warm, dry, no rash Assessment & Plan Assessment & Plan (1) Incisional hernia without obstruction or gangrene: Code(s): K43.2 - Incisional hernia without obstruction or gangrene Category: Medical Plan Patient returns for final postoperative visit. His wounds are clean, dry, and intact without redness or discharge. He may resume normal activity without restriction and should follow up as needed. Coding Level of Care Code Est Pt Level 3 (53022) Diagnoses Incisional hernia without obstruction or gangrene K43.2
[2023-07-22 14:59] VITALS: BP 118/72; PULSE 72; BMI 27.2
== END 2023-07-22 15:23 | disposition home or self-care (01) ==
PROVIDERS: PCP Internal Medicine; Visit Provider Surgery
DX: K43.2 Incisional hernia without obstruction or gangrene (principal)
CPT/HCPCS: 99212

== ENCOUNTER → 2023-07-22 14:37 | Outpatient (BNVA) | payer MEDICAID, SELFPAY | PROVIDERS: PCP Internal Medicine; Visit Provider Surgery | DX: Z09 Encounter for follow-up examination after completed treatment for conditions other than malignant neoplasm (principal); Z87.19 Personal history of other diseases of the digestive system | CPT/HCPCS: 99212 ==

== ENCOUNTER 2023-11-07 09:41 | Outpatient (REF) | payer MEDICAID, SELFPAY ==
--- NOTE | ~2023-11-07 | XR_ITS ---
EXAMINATION: XR LUMBOSACRAL SPINE CLINICAL INFORMATION: Lumbar spasm with pain radiating into the legs. COMPARISON: Lumbar spine radiographs dated 08/26/2022. TECHNIQUE: AP and lateral views of the lumbar spine and lateral view of the lumbosacral junction. FINDINGS: The vertebral bodies and posterior elements are normal. The disc spaces are preserved and the vertebral alignment is normal. There is endplate arthropathy at L4-5. The paraspinal soft tissues are normal. There are aortic atherosclerotic calcifications. XR/XR lumbar spine 2-3V IMPRESSION: 1. No acute fracture or spondylolisthesis is seen. 2. The lumbar disc spaces are well-maintained. 3. There is endplate arthropathy at L4-5. Electronically signed by: Davi Bowling MD 11/27/2023 04:53 PM EDT
== END 2023-11-07 09:42 | disposition home or self-care (01) ==
LOC: HO.XRAY 09:41
PROVIDERS: PCP Internal Medicine; Visit Provider Internal Medicine
DX: M62.830 Muscle spasm of back (principal)
CPT/HCPCS: 72100

== ENCOUNTER 2024-03-18 14:19 | Outpatient (REF) | payer MEDICAID, SELFPAY ==
[2024-03-18 16:40] LABS: Alanine Aminotransferase 14 U/L (0-40); Albumin Level 3.7 g/dL (3.5-5.0); Alkaline Phosphatase 75 U/L (39-117); Aspartate Amino Transferase 23 U/L (5-37); Bilirubin Direct 0.1 mg/dL (0.0-0.5); Bilirubin Total 0.3 mg/dL (0.0-1.0); Total Protein 6.1 g/dL (6.5-8.0)
[2024-03-19 09:22] LABS: HIV AB/AG Nonreactive (Nonreactive); HIV Num 1 0.06 S/CO (0.00-0.99); ~HepC Num1 15.81 S/CO (0.00-0.79); ~Hepatitis C Antibody Reactive (Nonreactive)
[2024-03-21 13:18] LABS: HCV Log PCR <1.18 NOT DETECTED Log IU/mL (NOT DETECTED); HepC Viral Load <15 NOT DETECTED IU/mL (NOT DETECTED)
== END 2024-03-18 14:20 | disposition home or self-care (01) ==
LOC: HO.HHCL 14:19
PROVIDERS: Visit Provider Emergency Medicine
DX: F11.20 Opioid dependence, uncomplicated (principal)
CPT/HCPCS: 36415; 80076; 86803; 87389; 87522